=== PATIENT | female | born 1975 | race Caucasian/White ===

== ENCOUNTER 2019-12-04 09:16 | Emergency (ER) | payer SELFPAY ==
--- NOTE | 2019-12-04 11:01 | ER Document Report ---
ED GI/ <ANGELINA MUELLER - Last Filed: 12/04/19 12:41> - Related Data Home Medications: supposed to take mental health medications. lost ins. <MIRELLA WALTER - Last Filed: 12/04/19 13:40> - General Chief Complaint: Vaginal Pain Stated Complaint: TOOTH PAIN/MOUTH PAIN Time Seen by Provider: 12/04/19 10:24 Primary Care Provider: [facility] [Provider Group] - Follow up in 3-5 days [facility] [Provider Group] - Follow up as needed [facility] [Outside] - Follow up as needed Notes: HPI: 44-year-old female presents today with about 1 week of some anterior lower gum pain as well as a lesion to her vaginal region. She denies any vaginal discharge, fevers, vomiting, sore throat, difficulty breathing or swallowing. She denies any chest pain, cough, shortness of breath, abdominal pain. Patient states she just moved here 3 weeks ago from [place]. She states she is a history of bipolar. She states she is supposed to be taking Latuda, Klonopin, temazepam, and Prozac. She has been out of her medications greater than 6 months. She does have disability but it does not cover her primary care office visits. She denies any racing thoughts, auditory visual hallucinations, or suicidal homicidal ideations. She states she does not have a primary provider or psychiatrist here in this area. ROS: See HPI All other review of systems reviewed and otherwise negative Reviewed vital signs and nursing note as charted by RN. PHYSICAL EXAM: CONSTITUTIONAL: Alert and oriented and responds appropriately to questions. Well-appearing; well-nourished HEAD: Normocephalic; atraumatic EYES: Sclerae non-icteric ENT: Patient has no lip, tongue, posterior pharyngeal lesions. Patient does have some anterior lower gumline decay with no obvious abscesses present. She does have poor dentition NECK: Supple without meningismus; non-tender; no cervical lymphadenopathy, no masses CARD: Regular rate and rhythm; no murmurs; symmetric distal pulses RESP: Normal chest excursion without splinting or tachypnea; breath sounds clear and equal bilaterally; no wheezes, no rhonchi, no rales ABD/GI: Normal bowel sounds; non-distended; soft, non-tender; no palpable organomegaly or masses BACK: The back appears normal and is non-tender to palpation EXT: Normal ROM in all joints; non-tender to palpation; no edema SKIN: No acute lesions noted NEURO: CN 2-12 intact; 5/5 bilateral upper and lower extremity strength with sensation intact to light touch PSYCH: The patient's mood and manner are appropriate. Grooming and personal hygiene are appropriate. (MIRELLA WALTER) - Related Data Allergies/Adverse Reactions: Penicillins Adverse Reaction (Verified 12/04/19 09:37) Past Medical History - Social History Smoking Status: Current Every Day Smoker Chew tobacco use (# tins/day): No Frequency of alcohol use: Occasional Drug Abuse: None Family History: Reviewed & Not Pertinent Patient has homicidal ideation: No <MIRELLA WALTER - Last Filed: 12/04/19 13:40> Physical Exam - Vital signs Vitals: Temp Pulse Resp BP Pulse Ox 98.7 F 105 H 16 124/86 H 97 12/04/19 09:25 12/04/19 09:25 12/04/19 09:25 12/04/19 09:25 12/04/19 09:25 Course - Laboratory Result Diagrams: 12/04/19 11:27 12/04/19 11:27 <ANGELINA MUELLER - Last Filed: 12/04/19 12:41> - Laboratory Result Diagrams: 12/04/19 11:27 12/04/19 11:27 <MIRELLA WALTER - Last Filed: 12/04/19 13:40> - Re-evaluation Re-evalutation: 12/04/19 11:00 Given the history and physical we will order basic labs including a liver panel and we will consult behavioral health for medication and outpatient follow-up. Regarding the dentition, I do believe that the patient would benefit from seeing a dentist. We will provide a discount in his list. I will also provide possibly a course of clindamycin secondary to the penicillin allergy. We will have a anode rebuilder present perform a pelvic examination. 12/04/19 12:24 Behavioral health is seen and assessed the patient. We have seen and assessed t he patient. They do recommend Zyprexa 2.5 mg in the morning and 5 mg at night. They have asked that we provided Zyprexa 2.5 mg now if the patient desires. She does desire this. Pelvic exam is pending. Labs otherwise as recorded. Have provided outpatient follow-up instructions for the patient. (MIRELLA WALTER) - Vital Signs Vital signs: Temp Pulse Resp BP Pulse Ox 98.7 F 105 H 16 124/86 H 97 12/04/19 09:25 12/04/19 09:25 12/04/19 09:25 12/04/19 09:25 12/04/19 09:25 - Laboratory Laboratory results interpreted by me: 12/04/19 12/04/19 11:27 11:27 WBC 10.8 H Urine Blood SMALL H Discharge <ANGELINA MUELLER - Last Filed: 12/04/19 12:41> <MIRELLA WALTER - Last Filed: 12/04/19 13:40> - Discharge Clinical Impression: Bipolar disorder Qualifiers: Active/Remission status: remission status unspecified Qualified Code(s): F31.9 - Bipolar disorder, unspecified Condition: Good Disposition: HOME, SELF-CARE Instructions: [facility], Clindamycin ([facility]), Dentist Additional Instructions: You have been evaluated both medical and behavioral health teams have been deemed appropriate for discharge. You have provided prescription for: Zyprexa 2.5 mg every morning 5 mg nightly; please take as directed. You provided local resource list of area providers including mobile crisis contact information. Please follow-up with your chosen provider within 3 to 5 days to make an appointment. You are recommended to engage in both medication management and therapeutic services. AT ANY TIME, IF YOUR SYMPTOMS CHANGE SIGNIFICANTLY OR WORSEN OR YOU DEVELOP NEW SYMPTOMS, RETURN TO THE EMERGENCY DEPARTMENT IMMEDIATELY FOR RE-EVALUATION. Please follow-up with possibly also the [facility] as a primary care physician 1 of the dental discount options that we have provided. Prescriptions: Clindamycin HCl 300 mg PO TID #30 capsule Olanzapine [Zyprexa 2.5 Mg Tablet] 2.5 mg PO BID #45 tablet Referrals: [facility] [Provider Group] - Follow up in 3-5 days [facility] [Provider Group] - Follow up as needed [facility] [Outside] - Follow up as needed
[2019-12-04 11:51] LABS: ABSOLUTE BASOPHILS # (AUTO) 0.1 10^3/uL (0.0-0.2); ABSOLUTE EOSINOPHILS # (AUTO) 0.1 10^3/uL (0.0-0.6); ABSOLUTE LYMPHOCYTES (AUTO) 2.6 10^3/uL (0.5-4.7); ABSOLUTE MONOCYTES (AUTO) 0.4 10^3/uL (0.1-1.4); ABSOLUTE NEUT (AUTO) 7.6 10^3/uL (1.7-8.2); BASOPHILS % (AUTO) 0.8 % (0-2); EOSINOPHILS % (AUTO) 0.5 % (0-6); HEMATOCRIT 42.3 % (36.0-47.0); LYMPHOCYTES % (AUTO) 24.2 % (13-45); MEAN CORPUSCULAR HEMOGLOBIN 32.4 pg (27.0-33.4); MEAN CORPUSCULAR HGB CONC 35.4 g/dL (32.0-36.0); MEAN CORPUSCULAR VOLUME 91 fl (80-97); MONOCYTES % (AUTO) 3.6 % (3-13); PLATELET COUNT 238 10^3/uL (150-450); RED BLOOD COUNT 4.63 10^6/uL (3.72-5.28); RED CELL DISTRIBUTION WIDTH 13.6 % (11.5-14.0); SEGMENTED NEUTROPHILS % (AUTO) 70.9 % (42-78); TOTAL CELLS COUNTED % (AUTO) 100 %; WHITE BLOOD COUNT 10.8 10^3/uL (4.0-10.5)
[2019-12-04 12:00] LABS: APPEARANCE,URINE CLEAR; BILIRUBIN,URINE NEGATIVE (NEGATIVE); COLOR,URINE STRAW; GLUCOSE, URINE NEGATIVE (NEGATIVE); KETONES,URINE NEGATIVE (NEGATIVE); LEUKOCYTE ESTERASE,URINE NEGATIVE (NEGATIVE); NITRITE,URINE NEGATIVE (NEGATIVE); PROTEIN,URINE NEGATIVE (NEGATIVE); URINE SPECIFIC GRAVITY 1.005; UROBILINOGEN,URINE NEGATIVE mg/dL (<2.0)
[2019-12-04 12:12] LABS: BLOOD UREA NITROGEN 7 mg/dL (7-20); CALCIUM 9.6 mg/dL (8.4-10.2); CHLORIDE 106 mmol/L (98-107)
[2019-12-04] MEDS ORDERED: OLANZAPINE 2.5 MG TABLET PO ONE (12:24)
--- NOTE | 2019-12-04 12:42 | PSYCHOLOGICAL NOTE ---
Psych Note - Psych Note Date seen by psych provider: 12/04/19 Time seen by psych provider: 11:05 - 1120 Psych Note: Reason for Consult:Medication recommendations/resources Consent Permissions:none provided Patient arrived to [facility] ED via POV Clinical Presentation: Anxious with tearful affect IVC Criteria per [place] GS 122C Dangerous to others Within the relevant past the individual No has inflicted or attempted to inflict or threatened to inflict serious bodily harm on another AND No that there is a reasonable probability that this conduct will be repeated. OR No has acted in such a way as to create a substantial risk of serious bodily harm to another AND No that there is a reasonable probability that this conduct will be repeated. OR No has engaged in extreme destruction of property AND NO that there is a reasonable probability that this conduct will be repeated. Previous episodes of dangerousness to others, when applicable, may be considered when determining reasonable probability of future dangerous conduct. Clear, cogent, and convincing evidence that an individual has committed a homicide in the relevant past is prima facie evidence of dangerousness to others. Dangerous to self Within the relevant past the individual has done any of the following: acted in such a way as to show ALL of the following: No The individual would be unable without care, supervision, and the continued assistance of others not otherwise available, to exercise self- control, judgment, and discretion in the conduct of the individual's daily responsibilities and social relations or to satisfy the individual's need for nourishment, personal or medical care, care home, or self-protection and safety. AND No There is a reasonable probability of the individual suffering serious physical debilitation within the near future unless adequate treatment is given. A showing of behavior that is grossly irrational, of actions that the individual is unable to control, of behavior that is grossly inappropriate to the situation, or of other evidence of severely impaired insight and judgment shall create a prima facie inference that the individual is unable to care for himself or herself. OR No has attempted suicide or threatened suicide AND No that there is a reasonable probability of suicide unless adequate treatment is given OR No has mutilated himself or herself or attempted to mutilate himself or herself AND No that there is a reasonable probability of serious self-mutilation unless adequate treatment is given. NOTE: Previous episodes of dangerousness to self, when applicable, may be considered when determining reasonable probability of physical debilitation, suicide, or self-mutilation. Medication recommendations per [facility] contracted psychiatrist are as follows: Zyprexa 2.5mg every morning and 5mg every evening Impression\plan: Patient is cleared from acute psychiatric services. Dr. Castelan was consulted to care management of this patient; attending physicians in agreement with recommendations and disposition. Case management: Patient provided local resource list of area providers including mobile crisis contact information and [facility] contact information.
[2019-12-04 12:55] LABS: T.VAGINALIS (WET MOUNT) NO TRICHOMONAS SEEN; YEAST (WET MOUNT) NO YEAST SEEN
[2019-12-04 12:57] LABS: RBCS (WET MOUNT) NO RBCS SEEN; WBCS (WET MOUNT) RARE WBCS SEEN
[2019-12-04] MEDS ORDERED: CLINDAMYCIN HCL 150 MG CAPSULE PO ONE (13:04)
[2019-12-04 13:12] LABS: ALBUMIN 4.4 g/dL (3.5-5.0); ALKALINE PHOSPHATASE 69 U/L (38-126); ANION GAP 7 (5-19); ASPARTATE AMINO TRANSFERASE 22 U/L (14-36); BILIRUBIN,DIRECT 0.3 mg/dL (0.0-0.4); BILIRUBIN,TOTAL 0.5 mg/dL (0.2-1.3); CARBON DIOXIDE 27 mmol/L (22-30); GLUCOSE 107 mg/dL (75-110); POTASSIUM 4.4 mmol/L (3.6-5.0); TOTAL PROTEIN 7.4 g/dL (6.3-8.2)
[2019-12-04 14:24] LABS: CHLAM PCR NOT DETECTED (NOT DETECT)
[2019-12-04 15:12] VITALS: BP 116/82
== END 2019-12-04 15:13 | disposition home or self-care (01) ==
LOC: ER 09:16
DX: F31.9 Bipolar disorder, unspecified (principal); R10.2 Pelvic and perineal pain; K08.9 Disorder of teeth and supporting structures, unspecified; F17.200 Nicotine dependence, unspecified, uncomplicated; Z88.0 Allergy status to penicillin
CPT/HCPCS: 99284; 36415; 87210; 85025; 80053; 81001; 87491; 87591; J3490

== ENCOUNTER 2019-12-28 09:59 | Emergency (ER) | payer SELFPAY ==
--- NOTE | 2019-12-28 10:09 | ER Document Report ---
ED Medical Screen (RME) - General Chief Complaint: Hand Pain Stated Complaint: HAND/LEG PAIN, MEDICATION REFILL Time Seen by Provider: 12/28/19 10:06 Mode of Arrival: Ambulatory Information source: Patient Notes: 44-year-old female presented to ED for complaint of burning pain in her right hand and right hip that goes down to her foot. She states she has no insurance that she can see an outside doctor the only insurance she has is covers hospitals. She states she cannot see her mental health doctor to get her bipolar medicine and this pain is making her mental condition worse. Will order x-rays of the right wrist and hip as well as low back and then she will need to speak with discharge planning to try to get away to get her medications. Also consult mental health to see if they can help her with her bipolar medications. I have greeted and performed a rapid initial assessment of this patient. A comprehensive ED assessment and evaluation of the patient, analysis of test results and completion of medical decision making process will be conducted by an additional ED providers. - Related Data Allergies/Adverse Reactions: Penicillins Adverse Reaction (Verified 12/28/19 10:06) Physical Exam - Vital signs Vitals: Temp Pulse Resp BP Pulse Ox 98.4 F 108 H 16 130/85 H 98 12/28/19 10:02 12/28/19 10:02 12/28/19 10:02 12/28/19 10:02 12/28/19 10:02 Course - Vital Signs Vital signs: Temp Pulse Resp BP Pulse Ox 98.4 F 108 H 16 130/85 H 98 12/28/19 10:02 12/28/19 10:02 12/28/19 10:02 12/28/19 10:02 12/28/19 10:02
--- NOTE | 2019-12-28 11:02 | RADIOLOGY REPORT (SQ) ---
EXAM DESCRIPTION: HIP RIGHT AP/LATERAL IMAGES COMPLETED DATE/TIME: 12/28/2019 10:44 am REASON FOR STUDY: Burning pain COMPARISON: None. NUMBER OF VIEWS: Two views. TECHNIQUE: AP pelvis and additional frog legview of the right hip. LIMITATIONS: None. FINDINGS: MINERALIZATION: Normal. RIGHT HIP: No fracture or dislocation. No worrisome bone lesions. LEFT HIP: No fracture or dislocation. No worrisome bone lesions. Limited views. PUBIS AND ISCHIUM: No fracture. PELVIS: No fracture. SACRUM: No fracture or dislocation. No worrisome bone lesions. LOWER LUMBAR SPINE: No fracture or dislocation. No worrisome bone lesions. No significant disc disea se. SOFT TISSUES: No findings. OTHER: No other significant finding. IMPRESSION: NEGATIVE STUDY OF THE RIGHT HIP. NO RADIOGRAPHIC EVIDENCE OF ACUTE INJURY. TECHNICAL DOCUMENTATION: JOB ID: [id number] 2010 [employer]- All Rights Reserved Reading location - IP/workstation name: [email or web address]
--- NOTE | 2019-12-28 11:02 | RADIOLOGY REPORT (SQ) ---
EXAM DESCRIPTION: HAND RIGHT 3 VIEWS IMAGES COMPLETED DATE/TIME: 12/28/2019 10:44 am REASON FOR STUDY: Burning pain COMPARISON: None. EXAM PARAMETERS: NUMBER OF VIEWS: Three views. TECHNIQUE: AP, lateral and oblique radiographic images acquired of the right hand. LIMITATIONS: None. FINDINGS: MINERALIZATION: Normal. BONES: No acute fracture or dislocation. No worrisome bone lesions. JOINTS: No effusions. SOFT TISSUES: No soft tissue swelling. No foreign body. OTHER: No other significant finding. IMPRESSION: NEGATIVE STUDY OF THE RIGHT HAND. NO RADIOGRAPHIC EVIDENCE OF ACUTE INJURY. TECHNICAL DOCUMENTATION: JOB ID: [id number] 2010 [employer]- All Rights Reserved Reading location - IP/workstation name: [email or web address]
--- NOTE | 2019-12-28 11:04 | RADIOLOGY REPORT (SQ) ---
EXAM DESCRIPTION: L SPINE WHOLE IMAGES COMPLETED DATE/TIME: 12/28/2019 10:44 am REASON FOR STUDY: Burning pain COMPARISON: None. NUMBER OF VIEWS: Five views including obliques. TECHNIQUE: AP, lateral, oblique, and sacral radiographic images acquired of the lumbar spine. LIMITATIONS: None. FINDINGS: MINERALIZATION: Normal. SEGMENTATION: Normal. No transitional anatomy. ALIGNMENT: Mild grade 1 anterolisthesis of L4 on L5. VERTEBRAE: Limbus vertebra at L4. DISCS: Disc narrowing at L4-5. POSTERIOR ELEMENTS: Mild hypertrophic facet changes from L4-S1. HARDWARE: None in the spine. PARASPINAL SOFT TISSUES: Normal. PELVIS: Intact as visualized. No fractures or worrisome bone lesions. SI joints intact. OTHER: No other significant finding. IMPRESSION: Mild anterolisthesis of L4 on L5. Facet arthropathy. Limbus vertebra. Degenerative di sc disease. TECHNICAL DOCUMENTATION: JOB ID: [id number] 2010 [employer]- All Rights Reserved Reading location - IP/workstation name: [email or web address]
--- NOTE | 2019-12-28 12:58 | ER Document Report ---
ED General - General Chief Complaint: Hand Pain Stated Complaint: HAND/LEG PAIN, MEDICATION REFILL Time Seen by Provider: 12/28/19 10:06 Mode of Arrival: Ambulatory Information source: Patient - HPI Notes: Patient arrives stating that she has history of bipolar disorder and she does not currently have any of her medication which is Zyprexa. She states she needs a refill of her Zyprexa. She also states that she is having some burning sensations to the right hip and right hand. This sensation is intermittent. Nothing that she knows of causes it but that does occur randomly. It is severe when it occurs and lasts for several hours. There is no significant radiation of the pain. She states she does not currently have an ID or insurance so she is unable to see a specialist however she does have an appointment coming up in several days to get an new ID. - Related Data Allergies/Adverse Reactions: Penicillins Adverse Reaction (Verified 12/28/19 12:24) Past Medical History - General Information source: Patient - Social History Smoking Status: Current Every Day Smoker Chew tobacco use (# tins/day): No Frequency of alcohol use: None Drug Abuse: None Family History: Reviewed & Not Pertinent Psychiatric Medical History: Reports: Hx Bipolar Disorder Review of Systems - Review of Systems Constitutional: denies: Chills, Fever Cardiovascular: denies: Chest pain, Palpitations Respiratory: denies: Cough, Short of breath -: Yes All other systems reviewed and negative Physical Exam - Vital signs Vitals: Temp Pulse Resp BP Pulse Ox 98.4 F 108 H 16 130/85 H 98 12/28/19 10:02 12/28/19 10:02 12/28/19 10:02 12/28/19 10:02 12/28/19 10:02 Interpretation: Tachycardic - General General appearance: Appears well, Alert - HEENT Head: Normocephalic, Atraumatic Eyes: Normal Pupils: PERRL - Respiratory Respiratory status: No respiratory distress Chest status: Nontender Breath sounds: Normal Chest palpation: Normal - Cardiovascular Rhythm: Regular Heart sounds: Normal auscultation Murmur: No - Abdominal Inspection: Normal Distension: No distension Bowel sounds: Normal Tenderness: Nontender Organomegaly: No organomegaly - Back Back: Normal, Nontender - Extremities General upper extremity: Normal inspection, Nontender, Normal color, Normal ROM, Normal temperature General lower extremity: Normal inspection, Nontender, Normal color, Normal ROM, Normal temperature, Normal weight bearing. No: Toño's sign - Neurological Neuro grossly intact: Yes Cognition: Normal Orientation: AAOx4 Ronni Coma Scale Eye Opening: Spontaneous [place] Coma Scale Verbal: Oriented Ronni Coma Scale Motor: Obeys Commands Ronni Coma Scale Total: 15 Speech: Normal Motor strength normal: LUE, RUE, LLE, RLE Sensory: Normal - Psychological Associated symptoms: Normal affect, Normal mood - Skin Skin Temperature: Warm Skin Moisture: Dry Skin Color: Normal Course - Re-evaluation Re-evalutation: 12/28/19 12:54 Patient presents with several different complaints. For the musculoskeletal complaints I will refer the patient to orthopedics. She also currently does not have an ID or insurance so she is going to receive a social work consult to help her obtain the resources that she needs. In addition she does not currently have her bipolar medication so she has received a behavioral health consult to help her with her behavioral health meds and I will prescribe them. - Vital Signs Vital signs: Temp Pulse Resp BP Pulse Ox 98.4 F 108 H 16 130/85 H 98 12/28/19 10:02 12/28/19 10:02 12/28/19 10:02 12/28/19 10:02 12/28/19 10:02 Discharge - Discharge Clinical Impression: Bipolar 1 disorder, depressed, Paresthesia Condition: Stable Disposition: HOME, SELF-CARE Instructions: Numbness or Paresthesia ([facility]), Bipolar Disorder ([facility]) Prescriptions: Meloxicam [Mobic 7.5 mg Tablet] 7.5 mg PO DAILY 30 Days #30 tablet Olanzapine [Zyprexa 2.5 Mg Tablet] 2.5 mg PO BID 30 Days #90 tablet Referrals: REY BELL MD [ACTIVE STAFF] - Follow up in 1 week
[2019-12-28 13:07] VITALS: BP 124/80
== END 2019-12-28 13:07 | disposition home or self-care (01) ==
LOC: ER 09:59
DX: F32.9 Major depressive disorder, single episode, unspecified (principal); R20.2 Paresthesia of skin; M25.551 Pain in right hip; M79.641 Pain in right hand; F17.200 Nicotine dependence, unspecified, uncomplicated
CPT/HCPCS: 72110; 99284

== ENCOUNTER 2020-02-25 19:42 | Emergency (ER) | payer SELFPAY ==
[2020-02-25 19:45] VITALS: BP 141/54
--- NOTE | 2020-02-25 20:07 | ER Document Report ---
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 pt has a hx of panic attacks. has been off her psych meds for the past month. she has only been taking seroquel at night. denies fever, chills, n/v, abdom pain, or dysuria. Physical Exam: GENERAL: Well-appearing, well-nourished and in no acute distress. HEAD: Atraumatic, normocephalic. ENT: Moist mucous membranes. RESP: Respirations even and unlabored CV- Regular rate. NEURO: No focal neurological deficits. Moves all extremities spontaneously and on command. My involvement in this patients care was limited to a rapid initial assessment. A comprehensive ED assessment and evaluation of the patient, analysis of test results, treatment, and completion of the medical decision making process will be performed by other ER providers. - Related Data Allergies/Adverse Reactions: Penicillins Adverse Reaction (Verified 12/28/19 12:24) Past Medical History Psychiatric Medical History: Reports: Hx Bipolar Disorder Physical Exam - Vital signs Vitals: Temp Pulse Resp BP Pulse Ox 97.7 F 112 H 20 141/54 H 100 02/25/20 19:44 02/25/20 19:44 02/25/20 19:44 02/25/20 19:44 02/25/20 19:44 Course - Vital Signs Vital signs: Temp Pulse Resp BP Pulse Ox 97.7 F 112 H 20 141/54 H 100 02/25/20 19:44 02/25/20 19:44 02/25/20 19:44 02/25/20 19:44 02/25/20 19:44 Doctor's Discharge - Discharge Disposition: ELOPED
--- NOTE | 2020-02-25 21:15 | RADIOLOGY REPORT (SQ) ---
EXAM DESCRIPTION: XR CHEST 2 VIEWS COMPLETED DATE/TME: 02/25/2020 20:36 CLINICAL HISTORY: 44 years, Female, chest pain COMPARISON: None. NUMBER OF VIEWS: TECHNIQUE: LIMITATIONS: None. FINDINGS: No evidence of pulmonary infiltrate or pleural effusion. The heart is normal in size. Pulmonary vascularity appears normal. There is evidence of prior sternotomy. IMPRESSION: No acute finding. copyright 2010 [employer]- All Rights Reserved
--- NOTE | 2020-02-26 14:49 | EKG REPORT ---
SEVERITY:- ABNORMAL ECG - SINUS RHYTHM INCOMPLETE RIGHT BUNDLE BRANCH BLOCK : Confirmed by: Patrick Gutiérrez 26-Feb-2020 14:48:42
== END 2020-02-25 23:30 | disposition left against medical advice (07) ==
LOC: ER 19:42
DX: R07.9 Chest pain, unspecified (principal); R06.02 Shortness of breath; F41.0 Panic disorder [episodic paroxysmal anxiety]; Z88.0 Allergy status to penicillin
CPT/HCPCS: 71046; 93005; 93010; 99281